=== PATIENT | male | born 2000 | race Caucasian/White ===

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

== ENCOUNTER → 2021-01-04 16:58 | Outpatient (CLI) | payer OTHER, MEDICAID, SELFPAY ==
[2021-01-04 19:37] LABS: Urine N gonorrhoeae NOT DETECTED
[2021-01-04 19:53] LABS: Urine Chlamydia NOT DETECTED
[2021-01-05 06:39] LABS: Hepatitis A Antibody IgM Negative (Negative)
[2021-01-05 10:51] LABS: Hepatitis B Core IgM Negative (Negative)
[2021-01-06 15:56] LABS: Hepatitis B Surface Antigen NEGATIVE s/c (NEGATIVE)
[2021-01-06 16:12] LABS: HIV 1 & 2 Ab/Ag 4th Gen Combo NEGATIVE (NEGATIVE)
== END ==
PROVIDERS: Family Provider Family Medicine; PCP Family Medicine; Referring Provider Physician Assistant; Visit Provider Physician Assistant
DX: Z72.52 High risk homosexual behavior (principal)
CPT/HCPCS: 36415; 86705; 86709; 87340; 87389; 87491; 87522; 87591